=== PATIENT | male | born 1985 | race Caucasian/White ===

== ENCOUNTER → 2017-03-23 | Outpatient (CLI) | payer OTHER ==
[~2017-03-23] MED LIST: ASPIRIN E.C. 8181 MG PO; FLEXERIL10 MG PO; LORTAB 5/500 501 TAB PO; MOTRIN 800800 MG/TAB PO; NO HOME MEDICATIONS; PREDNISONE20 MG PO; ZOLOFT
== END ==
LOC: MHCPAIN 10:32
DX: G89.29 Other chronic pain (principal); M47.27 Other spondylosis with radiculopathy, lumbosacral region; M53.3 Sacrococcygeal disorders, not elsewhere classified; Z87.891 Personal history of nicotine dependence
CPT/HCPCS: G0463

== ENCOUNTER → 2017-05-11 | Outpatient (CLI) | payer OTHER | LOC: MHCPAIN 10:04 | DX: G89.29 Other chronic pain (principal); M47.817 Spondylosis without myelopathy or radiculopathy, lumbosacral region; M53.3 Sacrococcygeal disorders, not elsewhere classified; Z87.891 Personal history of nicotine dependence | CPT/HCPCS: G0463 ==

== ENCOUNTER → 2017-06-07 | Outpatient (CLI) | payer OTHER | LOC: MHCPAIN 13:40 | DX: M47.817 Spondylosis without myelopathy or radiculopathy, lumbosacral region (principal) ==

== ENCOUNTER → 2017-07-04 | Outpatient (CLI) | payer OTHER | LOC: MHCPAIN 15:23 | DX: G89.29 Other chronic pain (principal); M47.817 Spondylosis without myelopathy or radiculopathy, lumbosacral region; M54.16 Radiculopathy, lumbar region; M53.3 Sacrococcygeal disorders, not elsewhere classified | CPT/HCPCS: G0463 ==

== ENCOUNTER → 2017-09-19 | Outpatient (CLI) | payer OTHER | LOC: MHCPAIN 08:06 | DX: G89.29 Other chronic pain (principal); M47.817 Spondylosis without myelopathy or radiculopathy, lumbosacral region; M54.16 Radiculopathy, lumbar region; M53.3 Sacrococcygeal disorders, not elsewhere classified | CPT/HCPCS: G0463 ==

== ENCOUNTER 2019-01-26 14:38 | Emergency (ER) | payer OTHER ==
[~2019-01-26] VITALS: Ht 195.6 cm; Wt 180.5 kg
[2019-01-26 14:41] VITALS: BP 136/86; TEMP 98.4
[2019-01-26] MEDS ORDERED: PROZAC 20MG20 MG PO (14:58)
[2019-01-26] MEDS ORDERED: MINIPRESS 1M1 MG/CAP PO (14:59)
[2019-01-26] MEDS ORDERED: DESYREL 100MG100 MG PO (14:59)
[2019-01-26] MEDS ORDERED: FISH OIL 500 M1 EAC1 PO (15:00)
[2019-01-26] MEDS ORDERED: LIPITOR 40MG TA40 MG PO (15:00)
[2019-01-26] MEDS ORDERED: VITAMIN D 1001000 IU PO (15:01)
[2019-01-26] MEDS ORDERED: PRINIVIL40 MG PO (15:02)
[2019-01-26] MEDS ORDERED: LOPRESSOR 550 MG/TAB PO (15:02)
[2019-01-26] MEDS ORDERED: NAPROSYN500 MG PO (16:34)
[2019-01-26 16:45] VITALS: PULSE 66
== END 2019-01-26 16:45 | disposition home or self-care (01) ==
LOC: COL.ER 14:38
DX: M25.511 Pain in right shoulder (principal); I10 Essential (primary) hypertension
CPT/HCPCS: J1885

== ENCOUNTER → 2020-09-02 | Emergency (ER) | payer OTHER ==
[~2020-09-02] MED LIST changes: +DESYREL 100MG100 MG PO; +FISH OIL 500 M1 EAC1 PO; +LIPITOR 40MG TA40 MG PO; +LOPRESSOR 550 MG/TAB PO; +MINIPRESS 1M1 MG/CAP PO; +NAPROSYN500 MG PO; +PRINIVIL40 MG PO; +PROZAC 20MG20 MG PO; +VITAMIN D 1001000 IU PO
== END ==
LOC: COL.ER 12:52
DX: R69 Illness, unspecified (principal)